=== PATIENT | male | born 1995 | race Caucasian/White ===

== ENCOUNTER → 2017-08-28 | Outpatient (CLI) | payer OTHER ==
--- NOTE | 2017-08-28 12:39 | DIAGNOSTIC IMAGING REPORT ---
CHEST 2 VIEWS ROUTINE CLINICAL HISTORY: Cough. COMPARISON STUDY: No previous studies for comparison. FINDINGS: Lung volumes are normal. There is no pneumothorax or pleural effusion. Cardiac size is normal. Mediastinal contours are normal. There is no evidence for pulmonary edema. IMPRESSION: No acute cardiopulmonary findings. Electronically signed by: Christiano Pérez M.D. 08/28/2017 12:37 PM Dictated Date/Time: 08/28/2017 12:37 PM
== END | disposition home or self-care (01) ==
LOC: C.RAD1850 12:06
PROVIDERS: ATTEND Family Medicine
DX: R05 Cough (principal)